=== PATIENT | male | born 1945 | race Caucasian/White ===

== ENCOUNTER 2019-06-03 11:17 | Outpatient (CLI) | payer MEDICARE, OTHER ==
--- NOTE | 2019-06-03 12:35 | RAD ---
CHEST 2 VIEWS: Date: 06/03/19 COMPARISON: None. HISTORY: Sinus infection, cough. FINDINGS: Lungs are clear. Heart and mediastinal contours unremarkable. IMPRESSION: No acute findings. POS: OFF
== END 2019-06-03 11:18 | disposition home or self-care (01) ==
LOC: BICRAD 11:17
PROVIDERS: ATTEND Allergy & Immunology
DX: J18.9 Pneumonia, unspecified organism (principal)
CPT/HCPCS: 71046